=== PATIENT | male | born 1940 | race Caucasian/White ===

== ENCOUNTER 2021-11-26 08:46 | Outpatient (CLI) | payer BC, MEDICARE, SELFPAY ==
[2021-11-26 13:35] LABS: Chloride* 108 mmol/L (96-114)
[2021-11-26 13:36] LABS: Potassium* 4.6 mmol/L (3.6-5.1); Sodium* 139 mmol/L (135-149)
[2021-11-26 13:38] LABS: Alanine Aminotransferase* 19 U/L (4-50); Alkaline Phosphatase* 94 U/L (40-150); Aspartate Amino Transferase* 32 U/L (12-35); Bilirubin Total* 0.3 mg/dL (0.1-1.5); Blood Urea Nitrogen* 33 mg/dL (7-30); Carbon Dioxide* 24 mmol/L (20-32); Cholesterol* 194 mg/dL (90-199); Creatinine* 1.7 mg/dL (0.5-1.5); Estimated Glomerular Filt Rate 40 ml/min; Glucose* 98 mg/dL (60-115); Total Protein* 7.4 g/dL (6.0-8.3)
[2021-11-26 13:39] LABS: Calcium* 8.9 mg/dL (8.4-10.6); HDL Cholesterol* 40 mg/dL (>=40); LDL Cholesterol Calculated 134 mg/dL (<100); Triglycerides* 99 mg/dL (40-149)
[2021-11-26 14:08] LABS: PSA Screen* 2.66 ng/mL (0.10-4.00)
== END 2021-11-26 08:47 | disposition home or self-care (01) ==
LOC: LONREF 08:47
PROVIDERS: PCP Internal Medicine; Visit Provider Internal Medicine
DX: E78.5 Hyperlipidemia, unspecified (principal); R97.20 Elevated prostate specific antigen [PSA]; I10 Essential (primary) hypertension; N18.9 Chronic kidney disease, unspecified; M10.9 Gout, unspecified; N40.0 Benign prostatic hyperplasia without lower urinary tract symptoms
CPT/HCPCS: 80053; 80061; 84153

== ENCOUNTER 2022-12-16 14:51 | Outpatient (CLI) | payer BC, MEDICARE, SELFPAY | END 2022-12-16 14:52 | disposition home or self-care (01) | LOC: NFLDREF 12-17 20:28 | PROVIDERS: PCP Internal Medicine; Referring Provider Internal Medicine; Visit Provider Family Medicine | DX: R97.20 Elevated prostate specific antigen [PSA] (principal) | CPT/HCPCS: 84153 ==

== ENCOUNTER 2024-09-11 09:13 | Emergency (ER) | payer BC, SELFPAY ==
--- OUTSIDE RECORDS SUMMARY | 2024-09-11 09:15 | XMS_ITS | Clinical Summary ---
Author Organization [facility] Address [address] [place] [address] Care Team Providers Care Clinical Laboratory Director Name Role Phone Elsewhere, Pcp Primary Care Provider Unavailabl e Source Comments Patient records contain information from all sites at [facility]. For routine questions regarding patient records, call [phone] during business hours, M-F 8:00 AM - 5:00 PM Central Time. Record requests for emergency care only can be directed to [phone] at any time.[facility] Allergies Active Allergy Reactions Criticality Noted Date Comments Cephalosporins Other (see comments) 10/08/2019 'stingers in back', burning Body pain Medications * This document contains information received from the source organization and may not represent a complete record from that organization. allopurinol (ZYLOPRIM) 300 mg tablet Take 0.5 tablets by mouth daily. 7 Active cyanocobalamin (VITAMIN B12) 1,000 mcg/mL injection Inject 1,000 mcg as directed every 30 (thirty) days. 7 Active diflorasone (PSORCON) 0.05 % ointment Apply topically as needed for rash. Active miscellaneous medical supply (Blood Pressure Cuff) [facility] [place] Patient with Hypertension. Needs BP monitor at home 1 each 1 Active amLODIPine (NORVASC) 5 mg tablet Take 1 tablet (5 mg total) by mouth daily. 90 tablet 3 1 Active EPINEPHrine 0.3 mg/0.3 mL injection syringe Inject 0.3 mg intramuscular ly. Active nitroglycerin (NITROSTAT) 0.[address] 0.4 mg under the tongue as needed. 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 Nocturia 12/17/2017 Abdominal Aortic Aneurysm Without Rupture Unspec ified 03/20/2017 Other Dysplasia Of Prostate 12/13/2014 Dysfunction Erectile 12/05/2014 Hyperlipidemia 05/06/2007 Hypertension Essential Primary 05/06/2007 Resolved Problems Problem Noted Date Diagnosed Date Resolved Date Hypertension 03/21/2017 07/06/2021 Hyperlipidemia 03/21/2017 07/06/2021 Encounters Date Type Department Care Team Description 09/09/2024 10:00 AM CDT Clinical Communication Virtual Review in [address] [phone] Pre-visit Intake 07/22/2024 Clinical Communication Division of Vascular and Endovascular Surgery in [address] [address] Marybeth Garcia M.D. Appt Request from Last 3 Months Family History Medical History Relation Name Comments Hyperlipidemia Brother Juarez Prostate cancer Brother Juarez Skin cancer Brother Juarez Hyperlipidemia Mother Archana Hypertension Mother Archana Relation Name Status Comments Brother Juarez Mother Archana Social History Tobacco Use Types Packs/Day Years Used Date Smoking Tobacco: Former Cigarettes 0.5 8 1 977 - 1982 Smokeless Tobacco: Never Tobacco Cessation:Counseling Given: Not Answered Alcohol Use Standard Drinks/Week Comments Yes 3 (1 standard drink = 0.6 oz pur e alcohol) Occasional drinker Humiliation, Afraid, Rape, and Kick questionnair e Answer Date Recorded Within the last year, have y ou been afraid of your partner or ex-partner? No 02/21/2022 Within the last year, have y ou been humiliated or emotionally abused in other ways by your partner or ex-partner? No Within the last year, have y ou been kicked, hit, slapped, or otherwise physically hurt by your partner or ex-partner? No 02/21/2022 Within the last year, have y ou been raped or forced to have any kind of sexual activity by your partner or ex-partner? No 02/21/2022 Social Connection and Isolat ion Panel [NHANES] Answer Date Recorded In a typical week, how many times do you talk on the phone with family, friends, or neighbors? Patient declined 02/21/2022 How often do you get togethe r with friends or relatives? Patient declined 02/21/2022 How often do you attend chur or islam services? More than 4 times per year 02/21/2022 Do you belong to any clubs o r organizations such as presybeterian groups, unions, fraternal or athletic groups, or school groups? Yes 02/21/2022 How often do you attend meet ings of the clubs or organizations you belong to? More than 4 times per year 02/21/2022 Are you , , di vorced, , never , or living with a partner? 02/21/2022 AUDIT-C Answer Date Recorded Q1: How often do you have a drink containing alc ohol? Patient declined 02/21/2022 Average Number of Drinks Not on file 022 Frequency of Binge Drinking Not on file 02/03 Overall Financial Resource Strain (CARDIA) Answe r Date Recorded How hard is it for you to pa y for the very basics like food, housing, medical care, and heating? Not very hard 02/21/2022 [facility] - Occupational Stress Questionnaire Answer Date Recorded Do you feel stress - tense, restless, nervous, or anxious, or unable to sleep at night because your mind is troubled all the time - these days? To some extent 02/21/2022 Exercise Vital Sign Answer Date Recorde d On average, how many days pe r week do you engage in moderate to strenuous exercise (like a brisk walk)? 2 days 02/21/2022 On average, how many minutes do you engage in exercise at this level? 50 min 02/21/2022 Hunger Vital Sign Answer Date Recorded Within the past 12 months, y ou worried that your food would run out before you got the money to buy more. Never true 02/22/20 Within the past 12 months, t he food you bought just didn't last and you didn't have money to get more. Never true 02/21/2022 PRAPARE - Transportation Answer Date Re corded In the past 12 months, has l ack of transportation kept you from medical appointments or from getting medications? No 02/21/2022 In the past 12 months, has l ack of transportation kept you from meetings, work, or from getting things needed for daily living? Patient declined 02/21/2022 Housing Stability Vital Sign Answer Stevie e Recorded In the last 12 months, was t here a time when you were not able to pay the mortgage or rent on time? No 02/21/2022 In the last 12 months, how many places have you lived? 2 02/21/2022 In the last 12 months, was t here a time when you did not have a steady place to sleep or slept in a jail (including now)? No 02/21/2022 Nutrition Answer Date Recorded On average, how many serving s of fruits and vegetables do you eat per day (serving size is equal to 1 cup or approximately the size of a tennis ball)? 2-3 02/21/2022 Dental Answer Date Recorded Dental: Regular Dentist Yes 02/22/20 Employment Answer Date Recorded Employment status Retired 02/21/2022 Education Answer Date Recorded What is the highest level of school you have completed or the highest degree you have received? Bachelor's degree (e.g., BA, AB, BS) 07/04/2021 Sex and Gender Information Value Date Recorded Sex Assigned at Male 07/24/2018 1:13 PM CDT Legal Sex Male 8:06 PM CLAIM ATTORNEY Gender Identity Male 07/24/2018 1:13 PM CDT Sexual Orientation Straight 07/24/2018 1: 13 PM CDT Last Filed Vital Signs Vital Sign Reading Time Taken Comments Blood Pressure 114/67 2021 11:15 AM CLAIM ATTORNEY Pulse 60 2021 11:15 AM CLAIM ATTORNEY Temperature 36.4 C (97.5 F) 2021 11:15 AM CLAIM ATTORNEY Respiratory Rate 16 2021 11:1 5 AM CLAIM ATTORNEY Oxygen Saturation 95% 2021 11: 15 AM CLAIM ATTORNEY Inhaled Oxygen Concentration - - Weight 84.8 kg (186 lb 15.2 oz) 07/06/2021 2:45 PM CLAIM ATTORNEY Height 175 cm (5' 8.9) 07/06/2021 6:07 AM CLAIM ATTORNEY Body Mass Index 27.69 07/06/2021 6:07 AM CLAIM ATTORNEY Plan of Treatment Upcoming Encounters Date Type Department Care Team (Latest Contact Info) Description 09/14/2024 9:00 AM CDT Appointment Department of Radiology, [facility], in [place], [place] [address] [place] [address] Marybeth Garcia M.D. [address] [place] [phone] Discharge Disposition: Home or Self Care 09/14/2024 10:40 AM CDT Office Visit Division of Vascular and Endovascular Surgery in [place], [place] [address] [place] [address] Marybeth Garcia M.D. [address] [place] [phone] Health Maintenance Due Date Last Done Comments Office Visit for Blood Pressure Check / Re-check 1940 RSV vaccine - (32-3 6 weeks) or 60+ years (1 - 1-dose 75+ series) 07/08/2015 COVID-19 Vaccine ( - 2023-2 5 season) 2024 Influenza Vaccine (#1) 2024 6, 05/07/2011, 03/30/2008 Depression Screening (Annual PHQ-2) 05/05/2024 Fall Risk Screen (Annual) 05/05/2024 DTaP,Tdap,and Td Vaccines (3 - Td or Tdap) 12/05/2031 12/04/2021, 11/08/2011 Pneumococcal vaccine (50+ years) Completed 07/23/2018, 01/08/2011 Zoster Vaccines Completed 11/02/2018, 07/23/2018 IPV Vaccines Aged Out No longer eligi ble based on patient's age to complete this topic Medical Devices Implanted Type Area Professor Of Geography Device Identifier Shelf Expiration Date Model / Serial / Lot Grft Exc Aaa [place] B[place] [id number] - [id number] - [id number] Implanted:Qty : 1 on 07/06/2021 by Marybeth Garcia M.D. at [facility] Vascular Graft N/A: Aorta [place] 03/28/2023 [id number] / [id number] / Grft Exc Aaa Ext [id number] - [id number] - [id number] Implanted:Qty : 1 on 07/06/2021 by Marybeth Garcia M.D. at [facility] Vascular Graft N/A: Aorta [place] 10/04/2023 [id number] / [id number] / Insurance MEDICARE [facility] Advance Directives For more information, please contact: [phone] * Full Code (Latest Code Status on File) Date Activated Date Inactivated Comments 07/06/2021 12:41 PM 2021 1:30 PM Question Answer Comments Full Code: Discussed * Full Code Date Activated Date Inactivated Comments 07/06/2021 5:52 AM 07/06/2021 12:41 PM Question Answer Comments Full Code: Discussed * Full Code Date Activated Date Inactivated Comments 10/08/2019 1:04 PM 10/08/2019 7:59 PM Question Answer Comments Full Code: Discussed Care Teams Clinical Laboratory Director Relationship Specialty Start Date End Date Elsewhere, Pcp PCP - General Family Medicine 03/28/21
--- OUTSIDE RECORDS SUMMARY | 2024-09-11 09:15 | XMS_ITS | Encounter Summary ---
Author Organization [facility] Address [address] [place] [address] Care Team Providers Care Public Speaking Coach Name Role Phone Elsewhere, Pcp Primary Care Provider Unavailabl e Reason for Visit * Reason Onset Date Comments Pre-visit Intake 09/09/2024 * Appointment Request (Routine) - Pending Review Specialty Diagnoses / Procedures Referred By Tyler t Referred To Contact Vascular Medicine Referral ID Status Reason Start Date Expiration Date V isits Requested Visits Authorized [id number] Pending Review 08/13/2024 11/13/2025 1 1 Encounter Details Date Type Department Care Team (Latest Contact Info) Description 09/09/2024 10:00 AM CDT Clinical Communication Virtual Review in [address] [address] Pre-visit Intake Social History Tobacco Use Types Packs/Day Years [...] How often do you attend chur or restorationist services? More than 4 times per year 02/21/2022 Do you belong to any clubs o r organizations such as restorationist groups, unions, fraternal or athletic groups, or [...] care, and heating? Not very hard 02/21/2022 [facility] - Occupational [...] money to buy more. Never true 02/22/20 22 Within the past 12 months, t he [...] place to sleep or slept in a retirement (including now)? No 02/21/2022 Nutrition Answer Date [...] PM CDT Legal Sex Male 8:06 PM LICENSED PRACTICAL NURSE Gender Identity Male 07/24/2018 1:13 PM CDT Sexual Orientation Straight 07/24/2018 1: 13 PM CDT documented as of this encounter Plan of Treatment Upcoming Encounters Date Type Department Care Team (Latest Contact Info) Description 09/14/2024 9:00 AM CDT Appointment Department of Radiology, [facility], in [place], [place] [address] [place] [address] Marybeth Garcia M.D. [address] [place] [address] Discharge Disposition: Home or Self Care 09/14/2024 10:40 AM CDT Office Visit Division of Vascular and Endovascular Surgery in [place], [place] [address] [place] [address] Marybeth Garcia M.D. [address] [place] [phone] documented as of this encounter Visit Diagnoses Not on filedocumented in this encounter Care Teams Public Speaking Coach Relationship Specialty Start Date End Date Elsewhere, Pcp PCP - General Family Medicine 03/28/21 documented as of this encounter
--- OUTSIDE RECORDS SUMMARY | 2024-09-11 09:15 | XMS_ITS | Data Portability ---
Author Organization [facility], [facility] Address [address] [place] [address] Care Team Providers Care Deck Molder Name Role Phone ANALIA SAMS Primary Care Provider Assessment No assessment recorded. Plan of Treatment Reminders Order Date Submit Date Provider Last Modified By Organization Details Last Modified Time Details Appointments None recorded. Lab prostate specific Ag, serum or plasma 2019 [facility], [address], [place], [address], 0 16:35:47 Referral None recorded. Procedures None recorded. Surgeries None recorded. Imaging None recorded. Medication Orders Trimix 30 papaverin e/1 phentolam ine/10 PGE-1 2019 020 [email or web address] Not available 0 16:30:49 Patient TargetsNo targets recorded. Patient Instructions Encounter Date Encounter Id Patient Instructions Last Modified By Organization Details Last Modified Time 02/29/2020 [id number] 79 y/o male presents for a penile injection trial Displayed good injection technique. Inject 0.3 cc at home with stronger concentration for first dosage. Titrate up or down as tolerated and needed for desired response. Educated on side effects. Hand out provided with more information on penile injection types, side effects and reminder of injection technique. [email or web address] Not available 02/29/2020 11:41:08 Reason for Referral None Reported. Results Created Date Observation Date Name Description Value Unit Range Abnormal Flag Note LastModifiedBy Organization Detail LastModifiedTime 02/29/20 20 02/29/2020 prost ate speci fic Ag, serum or plasm a PSA, total 2.12 NG/mL 0.00-4 .00 Not Available [facility] [address], [place], [address], 02/29/2020 16:35:47 Result Notes None recorded. 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 N42.31 : Prostatic intraepith elial neoplasia Not Available [facility] 0 23:43:18 Dysplasia of prostate 892919988 Active 2014 N42.3 : Dysplasia of prostate Not Available [facility] 0 23:43:18 Clinical finding Active 2018 N40.1 : Desire for urination Not Available [facility] 0 23:43:18 Nocturia 191377329 Active 2017 R35.1 : Nocturia Not Available [facility] 0 23:43:18 Slowing of urinary stream 57921062 Active 2017 R39.12 : Slowing of urinary stream Not Available [facility] 0 23:43:18 Finding of desire for urination 808171999 Active 2018 R39.15 : Finding of desire for urination Not Available [facility] 0 23:43:18 Impotence Active 2014 N52.9 : Impotence Not Available [facility] 0 23:43:18 Problem Notes None recorded. Procedures Surgical History Date Name Laterality Status Provider Name and Address Organization Details Recorded Time 020 Penile Self Injection Trial completed JOYCE MARAVILLA [address], [place], [address], [place] [facility] 02/29/2020 11:38:49 020 Blood Draw/[employer]/PSA RESULTS completed Nereyda Márquez [facility] 02/29/2020 11:13:00 020 Cystoscopy- male completed Cornell Jain MD [address], [place], [address], [place] [facility] 02/20/2020 18:48:29 020 Bladder Scan completed Olivia Maynard [facility] 02/18/2020 14:30:45 020 Us urine capacity measure completed Not Available [facility] 10/14/2019 15:42:05 019 Us urine capacity measure completed Not Available [facility] 10/14/2019 15:42:04 019 Cystourethroscopy completed Not Available [facility] 10/14/2019 15:42:05 019 Us urine capacity measure completed Not Available [facility] 10/14/2019 15:42:05 019 Cystourethroscopy completed Not Available [facility] 10/14/2019 15:42:05 019 Irrigation of bladder completed Not Available [facility] 10/14/2019 15:42:05 019 Prostatectomy (turp) completed Not Available [facility] 10/14/2019 15:42:04 019 Cystourethroscopy completed Not Available [facility] 10/14/2019 15:42:04 018 Us urine capacity measure completed Not Available [facility] 10/14/2019 15:42:05 017 Xcapsl ctrc rmvl cplx wo ecp completed Not Available [facility] 10/14/2019 15:42:05 016 Njx aa&/strd other pn/branch completed Not Available [facility] 10/14/2019 15:42:04 016 Biopsy of prostate completed Not Available [facility] 10/14/2019 15:42:05 015 Us urine capacity measure completed Not Available [facility] 10/14/2019 15:42:04 014 Colonoscopy thru stoma spx completed Not Available [facility] 10/14/2019 15:42:04 012 Us urine capacity measure completed Not Available [facility] 10/14/2019 15:42:04 011 Biopsy of prostate completed Not Available [facility] 10/14/2019 15:42:04 011 Njx aa&/strd other pn/branch completed Not Available [facility] 10/14/2019 15:42:05 011 Taty venous bld venipuncture completed Not Available [facility] 10/14/2019 15:42:05 010 Njx aa&/strd other pn/branch completed Not Available [facility] 10/14/2019 15:42:05 010 Biopsy of prostate completed Not Available [facility] 10/14/2019 15:42:05 010 Us urine capacity measure completed Not Available [facility] 10/14/2019 15:42:05 Removal of sperm duct(s) completed Not Available [facility] 10/14/2019 15:42:04 Remove ext hem groups 2+ completed Not Available [facility] 10/14/2019 15:42:04 Circum 28 days or older completed Not Available [facility] 10/14/2019 15:42:05 Imaging Results None recorded. Procedure Notes None recorded. Medical Equipment None Reported. Allergies Allergen ID Allergen Name Allergen Category Reaction Reaction Severity Criticality Documentation Date Start Date Code Code System Note Provider Name and Address Organization Details Recorded Time 703959 Velosef medicatio n Not available Not available Not available 02/29/2020 0 RxNorm Dalton Vick [facility], [place] - [facility] 0 10:26:20 Medications Name Sig Start Date Stop Date Status Note LastModified by Organization Details LastModified Time unlisted medication 5ml 2019 active Not Available Not Available Not Avai lable Trimix 30 papaverine/ 1 phentolamin e/10 PGE-1 5 2019 active Not Available Not Available Not Avai lable compounded medication Inject intracave rnosal as directed 2019 active Not Available Not Available Not Avai lable Trimix 30 papaverine/ 1 phentolamin e/10 PGE-1 inject intracave rnosal as directed PRN for sexual activity 2019 active Not Available Not Available Not Avai lable Trimix 30 papaverine/ 1 phentolamin e/10 PGE-1 r 2019 active Not Available Not Available Not Avai lable Trimix #5 inject intracave rnosal as directed PRN for sexual activity 2019 active Not Available Not Available Not Avai lable amoxicillin 500 mg capsule 02/17 completed Not Available Not Available Not Available sulfamethox azole 800 mg-trimetho prim 160 mg tablet 02/17 completed Not Available Not Available Not Available BD Safety-Stacy Detachable Needle 3 mL 25 gauge x 5/8 syringe 02/28 completed Not Available Not Available Not Available oxycodone-a cetaminophe n 5 mg-325 mg tablet 02/28 completed Not Available Not Available Not Available cyanocobala min (vit B-12) 1,000 mcg/mL injection solution active Not Available Not Available Not Available mupirocin calcium 2 % topical cream 02/28 completed Not Available Not Available Not Available diflorasone 0.05 % topical cream APPLY A THIN LAYER TO THE AFFECTED AREA(S) BY TOPICAL ROUTE 2 TIMES PER DAY active Not Available Not Available No t Available allopurinol 300 mg tablet active Not Available Not Available Not Available finasteride 5 mg tablet 02/28 completed Not Available Not Available Not Available diflorasone 0.05 % topical ointment 02/28 completed Not Available Not Available Not Available oxycodone 5 mg tablet 02/28 completed Not Available Not Available Not Available Vitals Date Recorded Body height Body mass index (BMI) Body weight Provider Name and Address Organization Details Last Updated DateTime 02/18/2020 175.26 cm 28.5 kg/m2 18129.33 g Olivia Maynard [facility] 02/18/2020 14:27:31 Date Recorded Body height Body mass index (BMI) Body weight Provider Name and Address Organization Details Last Updated DateTime 02/29/2020 175.26 cm 28.6 kg/m2 95186.92 g Dalton Vick [facility] 02/29/2020 10:26:03 Social History Question Answer Notes LastModified by Organizat ion Details LastModified Time Tobacco Smoking Status Former Smoker Not Available [facility] 10/14/2019 02:36:20 What Is Your Level Of Alcohol Consumption? Occasional [email or web address] Information not available 02/18/2020 What Is Your Level Of Caffeine Consumption? Occasional [email or web address] Information not available 02/18/2020 How Much Tobacco Do You Chew? None Information not available 02/29/2020 Do You Or Have You Ever Used E-cigarettes Or Vape? Never Used Electronic Cigarettes [email or web address] Information not available 02/18/2020 Race White Information n ot available 10/14/2019 Marital Status Informati on not available 10/14/2019 Do You Or Have You Ever Used Smokeless Tobacco? Never Used Smokeless Tobacco [email or web address] Information not available 02/18/2020 How Much Tobacco Do You Smoke? No Information not available 02/29/2020 Sex: Unknown Functional Status None recorded. Mental Status None recorded. Family History Nothing Reported Notes:Cancer-reoriductive sy stem :Runs in Family Medical History No medical history recorded. Immunizations Vaccine Type Date Status Note Provider Nam e and Address Organization Details Recorded Time Pneumococcal conjugate PCV 13 9 completed Dalton [email or web address] [facility] 02/29/2020 10:27:34 Past Encounters Encounter ID Performer Location Encounter Start Date Encounter Closed Date Diagnosis/Indication Diagnosis SNOMED-CT Code Diagnosis ICD10 Code Diagnosis Note [id number] MD Ian [facility] [address] [place] [id number] 02/18/2020 14:04:46 02/23/2020 15:32:51 Benign prostatic hyperplasia with outflow obstruction 985644291 N40.1 Status post TURP. Describes a slow stream. There is thin webbing that I do dilate using the cystoscope that I am not sure how obstructiv e that would be but the prostate itself is widely patent. Primary er ectile dysfunction 974943605 N52.9 We discussed alternativ es such as a penile injection trial with the physician' s reproductive healthcare assistant. He gets headaches with the medication and has failed to the ED secondary to discomfort [id number] JOYCE MARAVILLAro_[facility] [address] [place] [address],[facility] e [address] [place] [phone] 02/29/2020 10:17:21 02/29/2020 11:55:01 Primary erectile dysfunction 478122172 N52.9 Screening for malignant neoplasm of prostate 389276222 Z12.5 Health Concerns Section Related Observation LastModified by Organization Detai ls LastModified Time None Recorded Concern Status LastModified by Organization Details LastModified Time None Recorded Advance Directives Directive None Recorded Payers Insurance Date Sequence Insurance Name Policy Number Policy Mckenna Covered Member ID Mckenna Member ID Guarantor Name 02/15/2020 1 [place] [employer] Del[place] L Stapf [id number] Del[place] L Stapf 02/18/2020 1 [facility] [employer] 113 Delos L Stapf [id number] Delos L Stapf 03/02/2020 1 [place] [employer] Delos L Stapf [id number] Delos L Stapf 02/13/2021 1 [facility] [employer] 113 Delos L Stapf [id number] Delos L Stapf Notes Date Note Type Note Provider Name and Address Organization Details Recorded Time 0 text/html He has had transurethral resection of the prostate x2. Originally this worked very effectively but he describes his stream has slowed down. It is less powerful than what he had right after the surgery. He is denying fevers or chills without says he has some intermittent stream at times and is mostly slow at night. ED. tried pills not work headaxches. uses [facility]. looking for alternative. Cornell Jain MD [address] [place] [address],[address], [address], [facility] 02/20/2020 18:50:36 0 text/html Erectile DysfunctionReported bypatient.Notes:Patient has noticed a gradual decline in erectile function the past 8 years. He has tried Viagra and Cialis independently with only mild effectiveness. He reports side effect of headaches. Able to achieve an ehs of 1 currently. Here today for a penile injection trial. JOYCE MARAVILLA [address] [place] [address],[address], [place], [address], [facility] 02/29/2020 11:42:47
--- OUTSIDE RECORDS SUMMARY | 2024-09-11 09:15 | XMS_ITS | Data Portability ---
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 Plan of Treatment Reminders Order Date Submit Date Provider Last Modified By Organization Details Last Modified Time Details Appointments *Follow-u p 15 2024 09:00A Nelly Bray MD Not available Not available Not available Lab HbA1c (hemoglob in A1c), blood 2024 025 [employer] [facility], [address], [address], [place], [address], 07/06/2024 13:43:58 CMP, serum or plasma 2024 025 [employer] [facility], [address], [address], [place], [address], 07/06/2024 13:43:56 lipid panel, serum 2024 025 [employer] [facility], [address], [address], [place], [address], 07/06/2024 13:44:03 vitamin D, 25-hydrox y, total, serum 2024 025 [employer] [facility], [address], [address], [place], [address], 07/06/2024 13:43:59 testoster one, total, serum 2024 025 [email or web address] [facility], [address], [address], [place], [address], 07/06/2024 13:44:00 PSA, serum or plasma 2024 025 [email or web address] [facility], [address], [address], [place], [address], 07/06/2024 13:44:01 renal function panel, serum 2024 025 [email or web address] [facility], [address], [address], [place], [address], 07/06/2024 13:43:55 Referral None recorded. Procedures None recorded. Surgeries None recorded. Imaging None recorded. Medication Orders allopurin ol 300 mg tablet 2024 025 [facility], [address] [place], [address], 06/22/2024 12:13:30 cyanocoba braulio (vit B-12) 1,000 mcg/mL injection solution 2024 025 [facility], [address] [place], [address], 06/22/2024 12:32:01 amlodipin e 5 mg tablet 2024 025 [facility], [address] [place], [address], 06/22/2024 12:24:58 Patient TargetsNo targets recorded. Patient Instructions Encounter Date Encounter Id Patient Instructions Last Modified By Organization Details Last Modified Time 06/22/2024 [id number] gout: care instructions [email or web address] Not available 06/22/2024 12:13:24 high cholesterol : care instructions [email or web address] Not available 06/22/2024 12:13:24 high blood pressure: care instructions [email or web address] Not available 06/22/2024 12:24:53 learning about high blood pressure [email or web address] Not available 06/22/2024 12:24:53 07/20/2024 [id number] medicines to avoid with kidney disease: care instructions [email or web address] Not available 07/20/2024 11:36:36 high blood pressure: care instructions [email or web address] Not available 07/20/2024 11:36:36 learning about high blood pressure [email or web address] Not available 07/20/2024 11:36:35 high cholesterol : care instructions [email or web address] Not available 07/20/2024 11:36:35 Reason for Referral None Reported. Results Created Date Observation Date Name Description Value Unit Range Abnormal Flag Note LastModifiedBy Organization Detail LastModifiedTime 06/23/1907/06/2024 RENAL FUNCT ION PANEL glucose 91 mg/dL 65-99 normal Fasti ng refer ence inter hugh Not Available [employer] [facility] [address], [place], [address], 07/06/2024 13:43:55 06/23/19 25 07/06/2024 RENAL FUNCT ION PANEL urea nitrogen (BUN) 36 mg/dL 7-25 high Not Available [facility] [address], [place], [address], 07/06/2024 13:43:55 06/23/19 25 07/06/2024 RENAL FUNCT ION PANEL creatinine 2.48 mg/dL 0.70-1 .22 high Not Available [facility] [address], [place], [address], 07/06/2024 13:43:55 06/23/19 25 07/06/2024 RENAL FUNCT ION PANEL eGFR 25 mL/mi n/1.7 3m2 > or = 60 low Not Available [facility] [employer] [facility] [address], [place], [address], 07/06/2024 13:43:55 06/23/19 25 07/06/2024 RENAL FUNCT ION PANEL BUN/creatini ne ratio 15 (calc ) 6-22 normal Not Available [facility] [address], [place], [address], 07/06/2024 13:43:55 06/23/19 25 07/06/2024 RENAL FUNCT ION PANEL sodium 139 mmol/ L 135-14 6 normal Not Available [facility] [address], [place], [address], 07/06/2024 13:43:55 06/23/19 25 07/06/2024 RENAL FUNCT ION PANEL potassium 4.7 mmol/ L 3.5-5. 3 normal Not Available [facility] [address], [place], [address], 07/06/2024 13:43:55 06/23/19 25 07/06/2024 RENAL FUNCT ION PANEL chloride 102 mmol/ L 98-110 normal Not Available [facility] [address], [place], [address], 07/06/2024 13:43:55 06/23/19 25 07/06/2024 RENAL FUNCT ION PANEL carbon dioxide 29 mmol/ L 20-32 normal Not Available [facility] [address], [place], [address], 07/06/2024 13:43:55 06/23/19 25 07/06/2024 RENAL FUNCT ION PANEL calcium 9.5 mg/dL 8.6-10 .3 normal Not Available [facility] [address], [place], [address], 07/06/2024 13:43:55 06/23/19 25 07/06/2024 RENAL FUNCT ION PANEL phosphate ( phosphorus) 3.6 mg/dL 2.1-4. 3 normal Not Available [facility] [address], [place], [address], 07/06/2024 13:43:55 06/23/19 07/06/2024 RENAL FUNCT ION PANEL albumin 4.1 g/dL 3.6-5. 1 normal Not Available [facility] [address], [place], [address], 07/06/2024 13:43:55 06/23/19 25 07/06/2024 COMPR EHENS PAULA METAB OLIC PANEL glucose 91 mg/dL 65-99 normal Fasti ng refer ence inter hugh Not Available [facility] [address], [place], [address], 07/06/2024 13:43:56 06/23/19 25 07/06/2024 COMPR EHENS PAULA METAB OLIC PANEL urea nitrogen (BUN) 36 mg/dL 7-25 high Not Available [facility] [address], [place], [address], 07/06/2024 13:43:56 06/23/19 25 07/06/2024 COMPR EHENS PAULA METAB OLIC PANEL creatinine 2.48 mg/dL 0.70-1 .22 high Not Available [facility] [place] [address], [place], [address], 07/06/2024 13:43:56 06/23/19 25 07/06/2024 COMPR EHENS PAULA METAB OLIC PANEL eGFR 25 mL/mi n/1.7 3m2 > or = 60 low Not Available [facility] [address], [place], [address], 07/06/2024 13:43:56 06/23/19 25 07/06/2024 COMPR EHENS PAULA METAB OLIC PANEL BUN/creatini ne ratio 15 (calc ) 6-22 normal Not Available [facility] [place] [address], [place], [address], 07/06/2024 13:43:56 06/23/19 25 07/06/2024 COMPR EHENS PAULA METAB OLIC PANEL sodium 139 mmol/ L 135-14 6 normal Not Available [facility] [address], [place], [address], 07/06/2024 13:43:56 06/23/19 25 07/06/2024 COMPR EHENS PAULA METAB OLIC PANEL potassium 4.7 mmol/ L 3.5-5. 3 normal Not Available [facility] [address], [place], [address], 07/06/2024 13:43:56 06/23/19 25 07/06/2024 COMPR EHENS PAULA METAB OLIC PANEL chloride 102 mmol/ L 98-110 normal Not Available [facility] [address], [place], [address], 07/06/2024 13:43:56 06/23/19 25 07/06/2024 COMPR EHENS PAULA METAB OLIC PANEL carbon dioxide 29 mmol/ L 20-32 normal Not Available [facility] [address], [place], [address], 07/06/2024 13:43:56 06/23/19 25 07/06/2024 COMPR EHENS PAULA METAB OLIC PANEL calcium 9.5 mg/dL 8.6-10 .3 normal Not Available [facility] [address], [place], [address], 07/06/2024 13:43:56 06/23/19 25 07/06/2024 COMPR EHENS PAULA METAB OLIC PANEL protein, total 6.8 g/dL 6.1-8. 1 normal Not Available [facility] [address], [place], [address], 07/06/2024 13:43:56 06/23/19 25 07/06/2024 COMPR EHENS PAULA METAB OLIC PANEL albumin 4.1 g/dL 3.6-5. 1 normal Not Available [facility] [place] [facility] [address], [place], [address], 07/06/2024 13:43:56 06/23/19 25 07/06/2024 COMPR EHENS PAULA METAB OLIC PANEL globulin 2.7 g/dL_ (calc ) 1.9-3. 7 normal Not Available [facility] [address], [place], [address], 07/06/2024 13:43:56 06/23/19 25 07/06/2024 COMPR EHENS PAULA METAB OLIC PANEL albumin/glob ulin ratio 1.5 (calc ) 1.0-2. 5 normal Not Available [place] [address], [place], [address], 07/06/2024 13:43:56 06/23/19 25 07/06/2024 COMPR EHENS PAULA METAB OLIC PANEL bilirubin, total 0.6 mg/dL 0.2-1. 2 normal Not Available [facility] [address], [place], [address], 07/06/2024 13:43:56 06/23/19 25 07/06/2024 COMPR EHENS PAULA METAB OLIC PANEL alkaline phosphatase 51 U/L 35-144 normal Not Available [facility] [address], [place], [address], 07/06/2024 13:43:56 06/23/19 25 07/06/2024 COMPR EHENS PAULA METAB OLIC PANEL AST 17 U/L 10-35 normal Not Available [facility], [place], [address], 07/06/2024 13:43:56 06/23/19 25 07/06/2024 COMPR EHENS PAULA METAB OLIC PANEL ALT 11 U/L 9-46 normal Not Available [facility] [place] [address], [place], [address], 07/06/2024 13:43:56 06/23/19 25 07/06/2024 HEMOG LOBIN A1C hemoglobin A1C 5.6 %_of_ total _HGB <5.7 normal For the purpo se of ofelia jenkins for the prese nce of diabe mehul: <5.7% Consi stent with the absen ce of diabe mehul 5.7-6 .4% Consi stent with incre ased risk for diabe mehul (pred iabet es) > or =6.5% Consi stent with diabe mehul This assay resul t is consi stent with a decre ased risk of diabe mehul. Curre ntly, no conse nsus exist s elizabeth petit use of hemog lobin A1c for diagn osis of diabe mehul in child elaine. Accor ding to Ameri can Diabe mehul Assoc iatio n (ADA) guide lines , hemog lobin A1c <7.0% repre sents optim al contr ol in non-p regna nt diabe tic patie nts. Diffe rent metri cs may apply to speci fic patie nt popul ation s. Stand ards of Medic al Care in Diabe mehul(A DA). Not Available [facility] [place] [facility] [address], [place], [address], 07/06/2024 13:43:58 06/23/19 25 07/06/2024 VITAM IN D,25- OH,TO LINK,I A vitamin D,25-oh,tota l,ia 110 NG/mL 30-100 high Vitam in D Statu s 25-OH Vitam in D: Defic iency : <20 ng/mL Insuf ficie ncy: 20 - 29 ng/mL Optim al: > or = 30 ng/mL For 25-OH Vitam in D testi ng on patie nts on D2-wolf pplem entat ion and patie nts for whom quant itati on of D2 and D3 fract ions is requi red, the [facility] e[facility](TM ) 25-OH VIT D, (D2,D 3), LC/MS /MS is recom selma d: order code [id number] (addis ents >2yrs ). See Note 1 Not Available [facility] [place] [facility] [address], [place], [address], 07/06/2024 13:43:59 06/23/19 25 07/06/2024 TESTO STERO NE, TOTAL MALES (ADUL T), IA testosterone , total, males (adult), ia 791 NG/dL 250-82 7 normal Not Available [facility] [place] [facility] [address], [place], [address], 07/06/2024 13:44:00 06/23/1907/06/2024 PSA, TOTAL PSA, total 2.59 NG/mL < or = 4.00 normal The total PSA value from this assay syste m is stand ardiz ed again st the WHO stand anastasiya. The test resul t will be appro ximat chrissy 20% lower when rolando red to the equim olar- stand ardiz ed total PSA (Cornell man Coult er). Rolando rison of seria l PSA resul ts shoul d be inter prete d with this fact in mind. This test was perfo rmed using the Sieme ns chemi lumin escen t metho d. Value s obtai johnnie from diffe rent assay metho ds canno t be used inter cespedes eably . PSA level s, regar dless of value , shoul d not be inter prete d as absol monisha evide nce of the prese nce or absen ce of disea se. Not Available [facility] [place] [facility] [address], [place], [address], 07/06/2024 13:44:01 06/23/19 25 07/06/2024 ADVAN SHAWNA LIPID PNL W/INF LAMMA TION, CARDI O IQ(R) cholesterol, total 231 mg/dL <200 high Not Available [facility] [place] [facility] [address], [place], [address], 07/06/2024 13:44:03 06/23/19 25 07/06/2024 ADVAN SHAWNA LIPID PNL W/INF LAMMA TION, CARDI O IQ(R) HDL cholesterol 46 mg/dL >39 Not Available [facility] [place] [facility] [address], [place], [address], 07/06/2024 13:44:03 06/23/19 25 07/06/2024 ADVAN SHAWNA LIPID PNL W/INF LAMMA TION, CARDI O IQ(R) triglyceride s 122 mg/dL <150 Not Available [facility] [place] [facility] [address], [place], [address], 07/06/2024 13:44:03 06/23/19 25 07/06/2024 ADVAN SHAWNA LIPID PNL W/INF LAMMA TION, CARDI O IQ(R) LDL-choleste rol 161 mg/dL _(orestes c) <100 high José Luis able range <100 mg/dL for prima ry preve ntion ; <70 mg/dL for patie nts with CHD or diabe tic patie nts with >= 2 CHD risk facto rs. LDL-C is now calcu lated using the [facility] calcu latio n, which is a valid ated novel metho d provi ding milagros r accur acy than the Fried kellee equat ion in the estim ation of LDL-C . Daisy n SS et al. NIDA. 2013; 310(1 9): 2060- 2067 (http ://ed Click[employer] Servicesati on.Intelligize. com/f aq/FA Q164) LDL-C is now calcu lated using the [facility] calcu latio n, which is a valid ated novel metho d provi ding milagros r accur acy than the Fried kellee equat ion in the estim ation of LDL-C . Daisy n SS et al. NIDA. 2013; 310(1 9): 2060- 2067 (http ://ed ati on.Intelligize. com/f aq/FA Q164) Not Available [facility] [place] [facility] [address], [place], [address], 07/06/2024 13:44:03 06/23/19 25 07/06/2024 ADVAN SHAWNA LIPID PNL W/INF LAMMA TION, CARDI O IQ(R) chol/HDLC ratio 5.0 calc <5.0 high Not Available [facility] [place] [facility] [address], [place], [address], 07/06/2024 13:44:03 06/23/19 25 07/06/2024 ADVAN SHAWNA LIPID PNL W/INF LAMMA TION, CARDI O IQ(R) non HDL cholesterol 185 mg/dL _(orestes c) <130 high For patie nts with diabe mehul plus 1 major ASCVD risk facto r, treat ing to a non-H DL-C goal of <100 mg/dL (LDL- C of <70 mg/dL ) is consi dered a thera peuti c optio n. For patie nts with diabe mehul plus 1 major ASCVD risk facto r, treat ing to a non-H DL-C goal of <100 mg/dL (LDL- C of <70 mg/dL ) is consi dered a thera peuti c optio n. Not Available [facility] [place] [facility] [address], [place], [address], 07/06/2024 13:44:03 06/23/19 25 07/06/2024 ADVAN SHAWNA LIPID PNL W/INF LAMMA TION, CARDI O IQ(R) LDL particle number 1888 nmol/ L <1138 high Relat paula Risk: Optim al <1138 ; Moder ate 1138- 1409; High >1409 . Male and Femal e Refer ence Range : 1016 to 2185 nmol/ L. Not Available [facility] [place] [facility] [address], [place], [address], 07/06/2024 13:44:03 06/23/19 25 07/06/2024 ADVAN SHAWNA LIPID PNL W/INF LAMMA TION, CARDI O IQ(R) LDL small 319 nmol/ L <142 high Relat paula Risk: Optim al <142; Moder ate 142-2 19; High >219. Male Refer ence Range : 123 to 441 nmol/ L; Femal e Refer ence Range : 115 to 386 nmol/ L. Not Available [facility] [place] [facility] [address], [place], [address], 07/06/2024 13:44:03 06/23/19 25 07/06/2024 ADVAN SHAWNA LIPID PNL W/INF LAMMA TION, CARDI O IQ(R) LDL medium 282 nmol/ L <215 high Relat paula Risk: Optim al <215; Moder ate 215-3 01; High >301. Male Refer ence Range : 167 to 485 nmol/ L; Femal e Refer ence Range : 121 to 397 nmol/ L. Not Available [facility] [place] [facility] [address], [place], [address], 07/06/2024 13:44:03 06/23/19 25 07/06/2024 ADVAN SHAWNA LIPID PNL W/INF LAMMA TION, CARDI O IQ(R) HDL large 5392 nmol/ L >6729 low Relat paula Risk: Optim al >6729 ; Moder ate 6729- 5353; High <5353 . Male Refer ence Range : 4334 to 85687 nmol/ L; Femal e Refer ence Range : 5038 to [address]9911 nmol/ L. Not Available [facility] [place] [facility] [address], [place], [address], 07/06/2024 13:44:03 06/23/19 25 07/06/2024 ADVAN SHAWNA LIPID PNL W/INF LAMMA TION, CARDI O IQ(R) LDL pattern B patte rn A abnormal Relat paula Risk: Optim al Patte rn A; High Patte rn B. Refer ence Range : Patte rn A. Not Available [facility] [place] [facility] [address], [place], [address], 07/06/2024 13:44:03 06/23/19 25 07/06/2024 ADVAN SHAWNA LIPID PNL W/INF LAMMA TION, CARDI O IQ(R) LDL peak size 211.9 angst rom >222.9 low This test was devmariah arroyo and its bandar tical perfo rmanc e silvia cteri stics have been deter mined by [facility] Cardi ometa bolreina Lutz r of [place] sherley at [facility]. It has not been clear ed or appro long by the U.S. Food and Drug Admin istra tion. This assay has been valid ated pursu ant to the CLIA regul ation s and is used for clini orestes purpo ses. Relat paula Risk: Optim al >222. 9; Moder ate 222.9 -217. 4; High <217. 4. Male and Femal e Refer ence Range : 216 to 234.3 Angst rom. Adult cardi ovasc ular event risk categ ory cut point s (opti mal, moder ate, high) are based on an adult [place]. refer ence popul ation plus two large cohor t study popul ation s. Assoc iatio n betwe en lipop rotei n subfr actio ns and cardi ovasc ular event s is based on Major kee et al. ATVB. 2009; 29:19 75. For addit ional infor sanchez rodriguez e refer to http: //[facility] chris jewell.Mckay stDia gnost ics.c om/fa q/FAQ 134 (This link is being provi ded for infor sean nal/e ducat ional purpo ses only. ) Not Available [facility] [place] [facility] [address], [place], [address], 07/06/2024 13:44:03 06/23/19 25 07/06/2024 ADVAN SHAWNA LIPID PNL W/INF LAMMA TION, CARDI O IQ(R) apolipoprote in B 142 mg/dL <90 high Risk: Optim al <90 mg/dL ; Moder ate 90-11 9 mg/dL ; High >= 120 mg/dL ; Cardi ovasc ular event risk categ ory cut point s (opti mal, moder ate, high) are based on Natio nal Lipid Assoc iatio n recom menda tions - Fracisco HENRY et al. J of Clin Lipid . 2015; 9: 129-1 69 and Stephanie GOODWIN et al. Endoc r Pract . 2017; 23(Wolf ppl 2):1- 87. Not Available [facility] [place] [facility] [address], [place], [address], 07/06/2024 13:44:03 06/23/19 25 07/06/2024 ADVAN SHAWNA LIPID PNL W/INF LAMMA TION, CARDI O IQ(R) lipoprotein (A) 581 nmol/ L <75 high Verif ied by repea t bandar sis. Risk: Optim al <75 nmol/ L; Moder ate 75-12 5 nmol/ L; High >125 nmol/ L. Cardi ovasc ular event risk categ ory cut point s (opti mal, moder ate, high) are based on Isaura Holley. [facility] 2017; 69:69 2-711 . Not Available [facility] [place] [facility] [address], [place], [address], 07/06/2024 13:44:03 06/23/19 25 07/06/2024 ADVAN SHAWNA LIPID PNL W/INF LAMMA TION, CARDI O IQ(R) hs CRP 1.3 mg/L <1.0 high Refer ence Range : Optim al <1.0 mg/L, accor ding to Stephanie GOODWIN et al. Endoc r Pract .2017 ;23(S uppl 2):1- 87. The AHA/C DC Guide lines recom mend hs-CR P range s for ident ifyin g Relat paula Cardi ovasc ular Risk in patie nts ages >17 years : <1.0 mg/L Lower Relat paula Cardi ovasc ular Risk; 1.0-3 .0 mg/L [place] ge Relat paula Cardi ovasc ular Risk; 3.1-1 0.0 mg/L Highe r Relat paula Cardi ovasc ular Risk. If resul t is betwe en 3.1 and 10.0 mg/L, consi angelo retes ting in 1-2 weeks to exclu de a benig n trans ient eleva tion secon juan to infec tion or infla mmati on from the basel ine CRP value . Persi stent eleva tions of >10.0 mg/L upon retes ting may be assoc iated with infec tion and infla mmati on. The AHA/C DC recom menda tions are based on Pears on TA, Mensa h GA, Kristin mckeon RW, et al. Marke rs of infla mmati on and cardi ovasc ular disea se: appli catio n to clini orestes and publi c healt h pract ice: A state ment for healt hcare profe ssion als from the [facility] for Disea se Contr ol and Preve ntion and the Ameri can Heart Assoc iatio n. Circu latio n 2002; 107(3 ): 499-5 11. For ages >17 Years : hs-CR P mg/L Risk Accor ding to AHA/C DC Guide lines <1.0 Lower relat paula cardi ovasc ular risk. 1.0-3 .0 [place] ge relat paula cardi ovasc ular risk. 3.1-1 0.0 Highe r relat paula cardi ovasc ular risk. Consi angelo retes ting in 1 to 2 weeks to exclu de a benig n trans ient eleva tion in the basel ine CRP value secon juan to infec tion or infla mmati on. >10.0 Persi stent eleva tion, upon retes ting, may be assoc iated with infec tion and infla mmati on. Pears on TA, Mensa h GA, Kristin mckeon RW, et al. Marke rs of infla mmati on and cardi ovasc ular disea se: appli catio n to clini orestes and publi c healt h pract ice: A state ment for healt hcare profe ssion als from the Cente rs for Disea se Contr ol and Preve ntion and the Ameri can Heart Assoc iatio n. Circu latio n 2003; 107(3 ): 499-5 11. Not Available [facility] [place] [facility] [address], [place], [address], 07/06/2024 13:44:03 06/23/19 25 07/06/2024 ADVAN SHAWNA LIPID PNL W/INF LAMMA TION, CARDI O IQ(R) LP pla2 activity 135 nmol/ min/m L <124 high Relat paula Risk: Optim al <=123 nmol/ min/m L; High >123 nmol/ min/m L. This test was devel oped and its bandar tical perfo rmanc e silvia cteri stics have been deter mined by [facility]. It has not been clear ed or appro long by the FDA. This assay has been valid ated pursu ant to the CLIA regul ation s and is used for clini orestes purpo ses. See Note 2 Note 1 For addit ional infor sanchez rodriguez e refer to http: //[facility] chris jewell.Que stDia gnost ics.c om/fa q/FAQ 199 (This link is being provi ded for infor sean alarcon/ educjenniffer henry l purpo ses only. ) Note 2 This test was devel oped and its bandar tical perfo rmanc e silvia cteri stics have been deter mined by [facility]. It has not been clear ed or appro long by the FDA. This assay has been valid ated pursu ant to the CLIA regul ation s and is used for clini orestes purpo ses. Not Available [facility] [place] [facility] [address], [place], [address], 07/06/2024 13:44:03 Result Notes None recorded. Problems Name Problem SNOMED Code Status Onset Date Resolution Date Notes Provider Name and Address Organization Details Recorded Time [facility] [id number] Active 2024 Vance Bray MD [address] [place] [address], [phone], [facility]14 [place] 11:51:07 History of repair of aneurysm of abdominal aorta [id number] [facility] 2024 Vance Bray MD [address] [place] [address], [phone], [address] 5 11:54:51 Chronic kidney disease stage 4 [id number] [facility] 2024 Vance Bray MD [address] [place] [address], [phone], [address] 5 11:27:11 Chronic kidney disease stage 3B [id number] [facility] 2024 Vance Bray MD [address] [place] [address], [phone], [address] 5 12:06:42 Prediabetes [id number] [facility] 2024 Vance Bray MD [address] [place] [address], [phone], [address] 5 12:07:31 Hyperlipidemia [id number] [facility] 2024 Vance Bray MD [address] [place] [address], [phone] 0, [address] 5 12:09:15 Essential hypertension [id number] [facility] 2024 Vance Bray MD [address] [place] [address], [phone], [address] 5 12:23:30 Vitamin B12 deficiency (non anemic) [id number] [facility] 2024 Vance Bray MD [address] [place] [address], [phone], [address] 5 12:30:16 Fatigue [id number] [facility] 2024 Vance Bray MD [address] [place] [address], [phone], [address] 5 12:31:11 Problem Notes None recorded. Procedures Surgical History Date Name Laterality Status Provider Name and Address Organization Details Recorded Time insertion of arterial stent completed Cristela Licea LPN [address] 06/22/2024 10:59:22 Imaging Results None recorded. Procedure Notes None recorded. Medical Equipment None Reported. Medications Name Sig Start Date Stop Date Status Note LastModified by Organization Details LastModified Time amlodipine 5 mg tablet TAKE 1 TABLET BY MOUTH ONCE DAILY AT BEDTIME active Not Available Not Available No t Available cyanocobalam in (vit B-12) 1,000 mcg/mL injection solution INJECT 1 ML SUBCUTANEOU SLY ONCE EVERY MONTH active Not Available Not Available Not Available allopurinol 300 mg tablet Take 1 tablet every day by oral route for 90 days, for gout. active Not Available Not Available No t Available Vitals Date Recorded Body weight Body mass index (BMI) Body height Body temperature Heart rate Respiratory rate Oxygen saturation Oxygen saturation in Arterial blood by Pulse oximetry Systolic blood pressure Diastolic blood pressure Provider Name and Address Organization Details Last Updated DateTime 5 94971.0 3 g 26.1 kg/m2 176.53 cm 97.8 [degF] 50 /min 18 /min 98 % 98 % 137 mm[Hg] 77 mm[Hg] Cristela Licea LPN [address] 5 11:05:11 Date Recorded Systolic blood pressure Diastolic blood pressure Systolic blood pressure Diastolic blood pressure Systolic blood pressure Diastolic blood pressure Provider Name and Address Organization Details Last Updated DateTime 5 160 mm[Hg] 82 mm[Hg] 160 mm[Hg] 90 mm[Hg] 170 mm[Hg] 90 mm[Hg] Vance Bray MD [address] [place] [address], [phone] [place] [address] 5 12:20:15 Social History Question Answer Notes LastModified by Organizat ion Details LastModified Time Tobacco Smoking Status Never Smoker Cristela Licea LPN [address] 06/22/2024 11:02:19 What Is Your Level Of Alcohol Consumption? Occasional Information not available 06/22/2024 How Many Times Per Week Do You Consume Alcohol? 1-2 Times Per Week Information not available 06/22/2024 Are You Blind Or Do You Have Difficulty Seeing? No Information not available 06/22/2024 What Is Your Level Of Caffeine Consumption? Moderate Information not available 06/22/2024 Are You Deaf Or Do You Have Serious Difficulty Hearing? No Information not available 06/22/2024 What Was The Date Of Your Most Recent Tobacco Screening? 07/20/2024 [email or web address] Information not available 07/20/2024 Sex: Male Functional Status Question Answer Note LastModified by Organization D etails LastModified Time Do you have difficulty walking or climbing stairs? No Information not available 06/22/2024 Do you have difficulty doing errands alone? No Information not available 06/22/2024 Are you able to care for yourself? Yes Information n ot available 06/22/2024 Do you have difficulty dressing or bathing? No Information not available 06/22/2024 Mental Status Question Answer Note LastModified by Organization D etails LastModified Time Do you have difficulty concentrating, remembering or making decisions? No Information no t available 06/22/2024 Family History Relationship Description Onset Age of this Age Resolved Age Notes LastModified by Organization Details LastModified Time Mother Renal failure syndrome 87 [email or web address] Not available 2024 11:01:16 Mother Hypertensive disorder [email or web address] Not available 2024 11:01:04 Father Accidental physical contact 26 [email or web address] Not available 2024 11:01:38 Medical History Condition Response Hyperlipidemia Y Heart Disease Y Colonoscopy Y Hypertension Y Past Encounters Encounter ID Performer Location Encounter Start Date Encounter Closed Date Diagnosis/Indication Diagnosis SNOMED-CT Code Diagnosis ICD10 Code Diagnosis Note [id number] Vance Bray MD [address] [id number] [facility] [place] [address] 06/22/2024 10:23:31 06/22/2024 12:36:48 Gout 93911351 M10.9 History of repair of aneurysm of abdominal aorta 574020382 Z98.62 done at [facility] done 2020; last CT done was [address] AAA Chronic ki dney disease stage 3B 935961844 N18.32 Prediabetes 019546349 R7 3.03 Hyperlipidemia 21159847 E78.5 Essential hypertension 38797980 I10 Screening for malignant neoplasm of prostate 505015681 Z12.5 Vitamin B1 2 deficiency (non anemic) 66248583 E53.8 Fatigue 07608086 R53.83 [id number] Vance Bray MD [address] [address] [id number] [facility] [address] [place] [address] 07/20/2024 10:35:03 07/20/2024 11:38:56 Chronic kidney disease stage [address] Avila Hyperlipidemia 55856963 E78.5 Essential hypertension 77301250 I10 Health Concerns Section Related Observation LastModified by Organization Detai ls LastModified Time None Recorded Concern Status LastModified by Organization Details LastModified Time None Recorded Advance Directives Directive None Recorded Payers Insurance Date Sequence Insurance Name Policy Number Policy Mckenna Covered Member ID Mckenna Member ID Guarantor Name 07/26/2024 1 [place] [place] [address] [id number] Delos Stapf 06/21/2024 1 [place] [facility] Delos Stapf [id number] Delos Stapf Notes Date Note Type Note Provider Name and Address Organization Details Recorded Time 06/22/2024 text/html This is a new 83-year-old male patient here to establish care with PMH significant for history of AAA repair done at [facility] in [place] 2020, CKD stage IIIb, hyperlipidemia and essential hypertension and gout.He has no complaints or concern at this time. He is requesting medication refills of all of his prescribed medication which includes allopurinol 300 mg tablet 1/2 tablet daily and amlodipine 5 mg tablet once daily.Multiple fasting and nonfasting labs ordered Vance Bray MD [address] [place] [address], [phone], [facility] [place] 06/27/2024 19:01:21 07/20/2024 text/html This is a new 83-year-old male patient here to establish care with PMH significant for history of AAA repair done at [facility] in [place] 2020, CKD stage IIIb, hyperlipidemia and essential hypertension and gout.He has no complaints or concern at this time. He is requesting medication refills of all of his prescribed medication which includes allopurinol 300 mg tablet 1/2 tablet daily and amlodipine 5 mg tablet once daily.Multiple fasting and nonfasting labs ordered July 20, 2024Patient is here to discuss lab results dated 06/23/2024 which revealed total cholesterol 231, LDL cholesterol 61, HDL 46, triglycerides 122 hs-CRP 1.3 and LDL particle #[id number]. Patient is currently not on any anti-cholesterol agent.PSA and testosterone level are within normal limits. Testosterone level 791 and PSA 2.59, A1c 5.6% which is normal vitamin D level is 110 and a CMP normal glucose creatinine 2.48 EGFR 25 normal liver enzymesPatient is aware that his CKD is slightly worsened from stage IIIb to stage IV. Patient sees his home care manager Dr. Streeter. Vance Bray MD [address] [place], [address], [facility] [place] 07/25/2024 21:23:49
--- OUTSIDE RECORDS SUMMARY | 2024-09-11 09:16 | XMS_ITS | Clinical Summary ---
Author Organization [facility]. Address [address] [place] [address]. [place] [address] Care Team Providers Care Senior Manager Mergers & Acquisitions Name Role Phone No/Unknown, Pcp Primary Care Provider Unavailabl e Allergies Active Allergy Reactions Criticality Noted Date Comments Cephalosporins Other (See Comments) 02/22/2021 Body pain Medications meclizine (ANTIVERT) 25 MG tablet Take 1 tablet by mouth every 8 hours as needed for Dizziness. 20 tablet 1 Active LORazepam (ATIVAN) 0.5 MG tablet Take 0.5 tablets by mouth every 8 hours as needed (dizziness). 20 tablet 1 Active allopurinol (ZYLOPRIM) 300 MG tablet Take 150 mg by mouth daily. 2 Active amLODIPine (NORVASC) 5 MG tablet Take 5 mg by mouth daily. 2 Active cyanocobalamin (VITAMIN B-12) 1000 MCG/ML injection Inject 1,000 mcg as directed. 7 Active diflorasone (PSORCON) 0.05 % Ointment Apply topically 2 times daily. 2 Active finasteride (PROSCAR) 5 MG tablet Take 5 mg by mouth daily. 2 Active EPINEPHrine (EPIPEN) 0.3 MG/0.3ML injection Inject 0.3 mg into the muscle. Active Active Problems No known active problems Social History Tobacco Use Types Packs/Day Years Used Date Smoking Tobacco: Never Smokeless Tobacco: Never Tobacco Cessation:Counseling Given: Not Answered Alcohol Use Standard Drinks/Week Comments Yes 0 (1 standard drink = 0.6 oz pur e alcohol) occ Sex and Gender Information Value Date Recorded Sex Assigned at Not on file Legal Sex Male 8:36 AM EDT Gender Identity Not on file Sexual Orientation Not on file Last Filed Vital Signs Vital Sign Reading Time Taken Comments Blood Pressure 160/85 02/21/2022 8:43 AM EDT Pulse 64 02/21/2022 8:43 AM EDT Temperature 36.2 C (97.1 F) 02/21/2022 8:43 AM EDT Respiratory Rate 16 02/21/2022 8:43 AM EDT Oxygen Saturation 98% 02/21/2022 8:43 AM EDT Inhaled Oxygen Concentration - - Weight 87.9 kg (193 lb 12.8 oz) 02/21/2022 8:43 AM EDT Height 176.5 cm (5' 9.5) 02/21/2022 8:43 AM EDT Body Mass Index 28.21 02/21/2022 8:43 AM EDT Plan of Treatment Health Maintenance Due Date Last Done Comments YEARLY PHYSICAL ADULT 18+ 1958 PNEUMOCOCCAL (65y+) (1 of 1 - PCV) 1990 ZOSTER (SHINGLES) (1 of 2) 1990 TETANUS/DIPHTHERIA 2005 RSV Immunization - age 60 ye ars and older or (1 - 1-dose 75+ series) 07/08/2015 COVID-19 Vaccine ( - 2023-2 5 season) 2024 INFLUENZA (Season Ended) 2024 RSV Immunization < 20 months Aged Out No longer eligible based on patient's age to complete this topic Insurance MEDICARE BCBS Advance Directives For more information, please contact: [phone] Healthcare Agents on File Name Relationship Healthcare Agent Relationshi p Communication Destini Negron Spouse Stated Revenue Stamp Clerk Care Teams Senior Manager Mergers & Acquisitions Relationship Specialty Start Date End Date No/Unknown, Pcp Please call [facility] [place] [address] PCP - General 02/22/21
--- OUTSIDE RECORDS SUMMARY | 2024-09-11 09:16 | XMS_ITS | Encounter Summary ---
Author Organization [facility] Address [address] [place] [address] Care Team Providers Care Senior Software Project Manager Name Role Phone Elsewhere, Pcp Primary Care Provider Unavailabl e Reason for Visit * Reason Onset Date Comments Appt Request 07/22/2024 Encounter Details Date Type Department Care Team (Latest Contact Info) Description 07/22/2024 Clinical Communication Division of Vascular and Endovascular Surgery in [place], [place] [address] [place] [address] Marybeth Garcia M.D. [address] [place] [address] Appt Request Social History Tobacco Use Types Packs/Day Years Used Date Smoking Tobacco: Former Cigarettes 0.5 8 1 977 - 1982 Smokeless Tobacco: Never Alcohol Use Standard Drinks/Week Comments Yes 3 [...] 02/21/2022 How often do you attend chur ch or pentecostal services? More than 4 times per year 02/21/2022 Do you belong to any clubs o r organizations such as protestant groups, unions, fraternal or athletic groups, or [...] care, and heating? Not very hard 02/21/2022 [facility] - Occupational Stress [...] place to sleep or slept in a halfway (including now)? 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 [address] [place] [address] Discharge Disposition: Home or Self Care 09/14/2024 10:40 AM CDT Office Visit Division of Vascular and Endovascular Surgery in [place], [place] [address] [place] [address] Marybeth Garcia M.D. [address] [place] [address] documented as of this encounter Visit Diagnoses Not on filedocumented in this encounter Care Teams Senior Software Project Manager Relationship Specialty Start Date End Date Elsewhere, Pcp PCP - General Family Medicine 03/28/21 documented as of this encounter
--- OUTSIDE RECORDS SUMMARY | 2024-09-11 09:16 | XMS_ITS | Clinical Summary ---
Author Organization [facility] Address [address] [place] [address] Care Team Providers Care Leather Flesher Name Role Phone Kristofer Crane MD Primary Care Provider Allergies Active Allergy Reactions Criticality Noted Date Comments Cephalosporins Other - Describe In Comment Field Medium 02/19/2019 Intermediate, sharp pin point pains in back Cephradine 05/01/2007 stinging Medications CYANOCOBALAMIN 1,000 MCG/ML INJECTION Inject 1,000 mcg intramuscular every 4 weeks. PROTECT FROM LIGHT Active EPINEPHrine (EPIPEN) 0.3 mg/0.3 mL injection Inject 0.3 mg intramuscular one time if needed for Allergic Reaction. 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% Unspecified essential hypertension 05/06/2007 Other and unspecified hyperlipidemia 05/06/2007 Personal history of tobacco use, presenting hazards to health 05/06/2007 Immunizations Immunization Administration Dates Next Due Hepatitis A (Adult) 04/22/2008 Yellow Fever 04/22/2008 Family History Medical History Relation Name Comments Good Health Brother 1 Good Health Brother 2 Good Health Brother 3 Good Health Daughter 1 Good Health Daughter 2 Good Health Sister Good Health Son 1 Good Health Son 2 Relation Name Status Comments Brother 1 Alive 69 Brother 2 Alive 51 Brother 3 Alive 49 Daughter 1 Alive 40 Daughter 2 Alive 28 Father (Age 84) kidney amy lure Mother (Age 30) traffic ac cident Sister Alive 41 Son 1 Alive 38 Son 2 Alive 36 Social History Tobacco Use Types Packs/Day Years Used Date Smoking Tobacco: Former Cigarettes 1 10 0 05/05/1972 - 05/05/1982 Smokeless Tobacco: Never Tobacco Cessation:Counseling Given: Yes Alcohol Use Standard Drinks/Week Comments Yes 0 (1 standard drink = 0.6 oz pur e alcohol) 1-2 times per week Sex and Gender Information Value Date Recorded Sex Assigned at Not on file 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 Height 175.3 cm (5' 9) 02/22/2019 11:3 1 AM CDT Body Mass Index 28.21 02/22/2019 11:31 AM CDT Plan of Treatment Health Maintenance Due Date Last Done Comments Tdap 07/08/1951 Depression screening for age 12+ 1952 BMI (ht and wt on same day) for age 18+ 1958 Tetanus booster 1960 Pneumococcal series for age 50+ (1 of 1 - PCV) 991 Zoster (shingles) series for age 50+ (1 of 2) 07/07/18 91 RSV vaccine for adults or pr egnancy (1 - 1-dose 75+ series) 07/08/2015 COVID-19 vaccine series ( season) Influenza Vaccine (Season Ended) 2025 Insurance [facility] FED EMP MEDICARE PART A HB ONLY Advance Directives * Full Code (Latest Code Status on File) Date Activated Date Inactivated Comments 02/22/2019 11:07 AM 02/23/2019 4:43 PM * Full Code Date Activated Date Inactivated Comments 05/06/2007 10:11 AM 05/07/2007 12:49 PM Care Teams Leather Flesher Relationship Specialty Start Date End Date Kristofer Crane MD [address] [place] [id number] PCP - General Internal Medicine 02/16/19
--- NOTE | 2024-09-11 09:21 | CRLHL7_ITS ---
For Patients: As a result of the Century Cures Act, medical imaging exams and procedure reports are released immediately into your electronic medical record. You may view this report before your referring provider. If you have questions, please contact your health care provider. INDICATION: Right-sided weakness. COMPARISON: 01/25/2016 TECHNIQUE: CT of the brain / head without intravenous contrast. Multiplanar axial, coronal, and sagittal reformats were reconstructed. FINDINGS: No intracranial hemorrhage. Parenchymal volume is well preserved for age. No acute or subacute cortically based infarct. No substantial white matter disease. No mass or mass effect. Normal ventricles. No skull fractures. No worrisome focal bone lesion. IMPRESSION: No acute intracranial findings. Discussed with Dr. Gomes at 9:33 a.m. on 09/11/2024 Please note that all CT scans at this facility use dose modulation, iterative reconstruction, and/or weight-based dosing when appropriate to reduce radiation dose to as low as reasonably achievable. Dictated by Zoie Shelby MD @ 09/11/2024 9:35:01 AM (Electronically Signed)
--- NOTE | 2024-09-11 09:21 | CRLHL7_ITS ---
For Patients: As a result of the Century Cures Act, medical imaging exams and procedure reports are released immediately into your electronic medical record. You may view this report before your referring provider. If you have questions, please contact your health care provider. DATE: 09/11/2024 CLINICAL HISTORY: Patient with focal neurological deficits. TECHNIQUE: Standard helical CT image acquisition of the neck up to the skull base after bolus intravenous contrast enhancement. 2D and 3D MIP images for post-processing were performed and interpreted on an independent workstation and 3D images were permanently archived. COMPARISON: CT same day. FINDINGS: The origins of the great vessels from the aortic arch are patent. The origin of the right vertebral artery is patent. The origin of the left vertebral artery is patent. The common carotid arteries are patent. There is no stenosis at the origin of the right internal carotid artery. There is a mild (less than 50%) stenosis at the origin of the left internal carotid artery by NASCET criteria, caused by non-calcified plaque with a greater than 2mm residual lumen. The rest of the cervical segments of the internal carotid arteries are patent up to the skull base. The vertebral arteries are codominant. The cervical segments of the vertebral arteries are patent up to the skull base. The visualized lung apices are unremarkable. The thyroid gland is unremarkable. The soft tissues of the neck are unremarkable. There are degenerative changes in the cervical spine. IMPRESSION: Mild (less than 50%) stenosis at the origin of the left internal carotid artery by NASCET criteria, caused by non-calcified plaque with a greater than 2mm residual lumen. Please note that all CT scans at this facility use dose modulation, iterative reconstruction, and/or weight-based dosing when appropriate to reduce radiation dose to as low as reasonably achievable. Dictated by Che Mcmahon MD @ 09/11/2024 1:15:16 PM (Electronically Signed)
--- NOTE | 2024-09-11 09:21 | CRLHL7_ITS ---
For Patients: As a result of the Century Cures Act, medical imaging exams and procedure reports are released immediately into your electronic medical record. You may view this report before your referring provider. If you have questions, please contact your health care provider. DATE: 09/11/2024 CLINICAL HISTORY: Patient with focal neurological deficits. TECHNIQUE: Standard helical CT image acquisition through the intracranial circulation following intravenous administration of contrast material with bolus tracking. 2D and 3D MIP images for post-processing were performed and interpreted on an independent workstation and 3D images were permanently archived. COMPARISON: CT same day. FINDINGS: There is no cerebral aneurysm or large vessel occlusion. There is intracranial atherosclerosis with mild to moderate narrowing in the supraclinoid ICAs bilaterally, moderate narrowing in the right M1 segment and moderate narrowing in the right A2 segment. The left middle cerebral artery and its branches are normal. The left anterior cerebral artery and its branches are normal. The right vertebral artery and PICA are normal. The left vertebral artery and PICA are normal. The left vertebral artery is dominant. The basilar artery is patent and appears normal. The right posterior cerebral artery is normal. The left posterior cerebral artery is normal. IMPRESSION: 1. No cerebral aneurysm or large vessel occlusion. 2. Intracranial atherosclerosis with mild to moderate narrowing in the supraclinoid ICAs bilaterally, moderate narrowing in the right M1 segment and moderate narrowing in the right A2 segment. Please note that all CT scans at this facility use dose modulation, iterative reconstruction, and/or weight-based dosing when appropriate to reduce radiation dose to as low as reasonably achievable. Dictated by Che Mcmahon MD @ 09/11/2024 1:19:50 PM (Electronically Signed)
[2024-09-11 09:34] LABS: Basophils Absolute Auto 0.04 K/uL (0.00-0.30); Basophils Percent Auto 0.9 % (0.0-3.0); Eosinophils Absolute Auto 0.13 K/uL (0.00-0.50); Eosinophils Percent Auto 2.9 % (0.0-7.0); Hemoglobin* 13.5 gm/dL (13.5-17.5); Immature Granulocytes Abs Auto 0.03 K/uL (0.00-0.30); Immature Granulocytes Pct Auto 0.7 %; Lymphocytes Absolute Auto 1.37 K/uL (0.90-2.90); Mean Corpuscular HGB Conc 32 gm/dL (32-36); Mean Corpuscular Hemoglobin 27 pg (26-34); Mean Corpuscular Volume 83 fL (80-100); Monocytes Percent Auto 7.9 % (0.0-11.0); Neutrophils Absolute Auto 2.63 K/uL (1.7-7.0); Neutrophils Percent Auto 57.6 % (42.0-72.0); Platelet Count* 168 K/uL (140-440); RDW Coefficient of Variation % 13.9 % (11.5-15.5); Red Blood Count 5.04 m/uL (4.30-5.90); White Blood Count* 4.56 K/uL (4.50-11.00)
[2024-09-11 09:35] LABS: Slide Review Reflex No
--- NOTE | 2024-09-11 09:35 | ED_ITS ---
HPI - General Adult General Chief complaint: Neuro Symptoms/Altered Deficit Stated complaint: Possible Stroke Time Seen by Provider: 09/11/24 09:28 History of Present Illness HPI narrative: Patient is a 84-year-old gentleman who happens to be my primary care patient as well who woke approximately 6 hours ago with severe cramp in his right leg. He did not think much of an went back to sleep but this morning is having difficulties with coordination of the right arm and leg. Upon awakening this morning approximately an hour ago or 5 hours after the onset of symptoms patient's noticed the patient was having garbled speech. Patient able to walk without difficulty. He has had no seizure activities. His sensorium appears to be clear. He has had no chest pain no shortness a breath orthopnea no PND no recent history of any medical issues and he has not had a CVA in the past. Patient takes no anti-platelet or anti coagulant. Related Data Home Medications ?Medication ?Instructions ?Recorded ?Confirmed amlodipine 10 mg tablet 10 mg PO QDAY 12/04/21 11/07/22 mecobalamin (vitamin B12) 10,000 1,000 mcg IM MONTHLY 12/04/21 11/07/22 mcg solution for injection simvastatin 10 mg tablet 10 mg PO QPM 12/04/21 11/07/22 Previous Rx's ?Medication ?Instructions ?Recorded finasteride 5 mg tablet 5 mg PO QDAY #90 tabs 12/04/21 rosuvastatin 10 mg tablet 10 mg PO QDAY #90 tabs 12/04/21 diflorasone 0.05 % topical ointment 1 applic topical BID #30 grams 01/21/22 amlodipine 5 mg tablet 5 mg PO QDAY #90 tabs 11/24/22 allopurinol 300 mg tablet 150 mg (1/2 x 300 mg) PO QDAY Gout 04/21/23 #45 tabs cyanocobalamin (vitamin B-12) 1,000 mcg IM Q4W #10 mL 05/27/23 1,000 mcg/mL injection solution clopidogrel 75 mg tablet (Plavix) 75 mg PO DAILY #21 tabs 09/11/24 Allergies Allergy/AdvReac Type Severity Reaction Status Date / Time Cephalosporins Allergy Intermediate sharp pin Verified 09/11/24 10:22 point pains in back Review of Systems Status of ROS: Reports: 10 or more systems reviewed and unremarkable except as noted in History and below [facility] Medical History Mass of anterior abdominal wall ?R22.2 - Localized swelling, mass and lump, trunk (ICD-10) Surgical History Status post recent transurethral resection of prostate ?Z98.890 - Other specified postprocedural states (ICD-10) Status post abdominal aortic aneurysm repair ?Z98.890 - Other specified postprocedural states (ICD-10) ?Z86.79 - Personal history of other diseases of the circulatory system (ICD- 10) Social History Smoking Status: Former smoker Exam Narrative: Exam Narrative: EXAM GENERAL: Patient appears comfortable and well. EYES: No scleral icterus. ENT: Tympanic membranes and oropharynx normal. THYROID: no thyroid nodules or thyromegaly. LYMPH: No supraclavicular or cervical lymphadenopathy. SKIN: Visible skin seen during exam normal or with benign process only. EXT: No dependent lower extremity pedal edema. HEART: Regular rate and rhythm with no murmurs, rubs, or gallops. LUNGS: Clear to auscultation bilaterally with no crackles or wheezes. ABD: Soft, non tender, non distended. PSYCH: Good eye contact, speech is not pressured. Neurologic cranial nerves 2-12 grossly intact. I do see some minor and un coordination of the right arm but no other palpable or visual abnormalities. Const: Vital Signs, click to edit/add: Vital Signs - 24 hr 09/11/24 09:54 Temperature 97.3 F L Pulse Rate [Left] 62 Respiratory Rate 18 Blood Pressure [Le ft Upper Arm] 180/82 H Pulse Oximetry 100 Oxygen Delivery Me thod Room Air Course Course ED Course: Patient arrived in a stroke code was called. CT CTA pending. I did visit with Neurology. Center laboratory studies are pending EKG pending. Vital Signs Vital signs: Initial Vital Signs Temperature 97.3 F L 09/11/24 09:54 Temperature Source Temporal Artery Scan 09/11/24 09:54 Pulse Rate 62 09/11/24 09:54 Pulse Rhythm Regular 09/11/24 09:54 Respiratory Rate 18 09/11/24 09:54 Blood Pressure 180/82 H 09/11/24 09:54 Blood Pressure Mean 114 H 09/11/24 09:54 Blood Pressure Position Supine 09/11/24 09:54 Pulse Oximetry 100 09/11/24 09:54 Oxygen Delivery Method Room Air 09/11/24 09:54 Vital Signs Temperature 97.3 F L 09/11/24 09:54 Pulse Rate 62 09/11/24 09:54 Respiratory Rate 18 09/11/24 09:54 Blood Pressure 180/82 H 09/11/24 09:54 Pulse Oximetry 100 09/11/24 09:54 Oxygen Delivery Method Room Air 09/11/24 09:54 Temperature 97.3 F L 09/11/24 09:54 Pulse Rate 62 09/11/24 09:54 Respiratory Rate 18 09/11/24 09:54 Blood Pressure 180/82 H 09/11/24 09:54 Pulse Oximetry 100 09/11/24 09:54 Oxygen Delivery Method Room Air 09/11/24 09:54 Medical Decision Making MDM Narrative Medical decision making narrative: Patient presents after having a leg cramp at night with some garbled speech and right-sided weakness. I did give him an NIH stroke score of 2. GCS is 15. Laboratory studies are reassuring CT of the head is unremarkable EKG shows sinus rhythm. He had some minor small vessel changes but nothing acute on his cerebral angiogram. 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 I did visit with Neurology who also saw the patient in the ED recommend aspirin 325 now and Plavix 300 now. Will follow with 21 days of Plavix and continued aspirin 81 mg daily. Patient is to have an outpatient echocardiogram and MRI without contrast. Patient is visiting from [place] and will be heading back in the next 1-2 days. He does not want to schedule the imaging at this time and understands the risk of doing so. He is able to contact me and we will set up follow-up for him. At the very latest we will follow-up when he returns in October. I did recommend the MRI and echocardiogram this week. Lab Data Labs: Lab Results 09/11/24 Range/Units 09:26 WBC 4.56 (4.50-11.00) K/uL RBC 5.04 (4.30-5.90) m/uL Hgb 13.5 (13.5-17.5) gm/dL Hct 42.0 (37.0-53.0) % MCV 83 (80-100) fL MCH 27 (26-34) pg MCHC 32 (32-36) gm/dL RDW Coeff of Tanna 13.9 (11.5-15.5) % Plt Count 168 (140-440) K/uL Neut % (Auto) 57.6 (42.0-72.0) % Lymph % (Auto) 30.0 (20-44) % Saunders % (Auto) 7.9 (0.0-11.0) % Eos % (Auto) 2.9 (0.0-7.0) % Baso % (Auto) 0.9 (0.0-3.0) % Neut # (Auto) 2.63 (1.7-7.0) K/uL Lymph # (Auto) 1.37 (0.90-2.90) K/uL Saunders # (Auto) 0.40 (0.00-0.90) K/UL Eos # (Auto) 0.13 (0.00-0.50) K/uL Baso # (Auto) 0.04 (0.00-0.30) K/uL Abs Immat Gran (auto) 0.03 (0.00-0.30) K/uL Imm/Tot Granulo (auto) 0.7 % INR 0.93 (0.91-1.10) Sodium 139 (135-149) mmol/L Potassium 4.2 (3.6-5.1) mmol/L Chloride 104 (96-114) mmol/L Carbon Dioxide 28 (20-32) mmol/L Anion Gap 7 (7-15) mEq/L BUN 34 H (7-30) mg/dL Creatinine 2.0 H (0.5-1.5) mg/dL Estimated GFR 32 ml/min Glucose 112 (60-115) mg/dL Calcium 9.6 (8.4-10.6) mg/dL Total Bilirubin 0.6 (0.1-1.5) mg/dL AST 33 (12-35) U/L ALT 18 (4-50) U/L Alkaline Phosphatase 60 (40-150) U/L Total Protein 7.4 (6.0-8.3) g/dL Albumin 4.2 (3.3-5.0) g/dL Discharge Plan Discharge Clinical Impression: Weakness Patient Disposition: Home, Self-Care Condition: Stable Instructions: Weakness (ED) Additional Instructions: Aspirin 81 mg daily Plavix 75 mg daily for 21 days Continue current medications. Follow-up with Dr. Crane to schedule MRI and echocardiogram. Return if symptoms return. Activity Level: No Restrictions Discharge Diet: Regular Prescriptions: New clopidogrel [Plavix] 75 mg tablet 75 mg PO DAILY Qty: 21 2RF No Action amlodipine 10 mg tablet 10 mg PO QDAY simvastatin 10 mg tablet 10 mg PO QPM mecobalamin (vitamin B12) 10,000 mcg recon soln 1,000 mcg IM MONTHLY rosuvastatin 10 mg tablet 10 mg PO QDAY Qty: 90 3RF finasteride 5 mg tablet 5 mg PO QDAY Qty: 90 3RF diflorasone 0.05 % ointment 1 applic topical BID Qty: 30 2RF amlodipine 5 mg tablet 5 mg PO QDAY Qty: 90 3RF allopurinol 300 mg tablet 150 mg PO QDAY Qty: 45 3RF cyanocobalamin (vitamin B-12) 1,000 mcg/mL solution 1,000 mcg IM Q4W Qty: 10 0RF Follow Up/Referrals: Provider,Not a Local [Primary Care Provider] - Stand Alone Forms: MyHealth Info Instructions
[2024-09-11 09:43] LABS: Albumin* 4.2 g/dL (3.3-5.0); Chloride* 104 mmol/L (96-114); Potassium* 4.2 mmol/L (3.6-5.1); Sodium* 139 mmol/L (135-149)
[2024-09-11 09:45] VITALS: BP 176/81; PULSE 62; RESP 16; O2SAT 100
[2024-09-11 09:46] LABS: Alanine Aminotransferase* 18 U/L (4-50); Alkaline Phosphatase* 60 U/L (40-150); Anion Gap 7 mEq/L (7-15); Aspartate Amino Transferase* 33 U/L (12-35); Bilirubin Total* 0.6 mg/dL (0.1-1.5); Blood Urea Nitrogen* 34 mg/dL (7-30); Calcium* 9.6 mg/dL (8.4-10.6); Carbon Dioxide* 28 mmol/L (20-32); Estimated Glomerular Filt Rate 32 ml/min; Glucose* 112 mg/dL (60-115); INR 0.93 (0.91-1.10); Prothrombin Time 13.2 Seconds; Total Protein* 7.4 g/dL (6.0-8.3)
--- OUTSIDE RECORDS SUMMARY | 2024-09-11 09:49 | XMS_ITS | Encounter Summary ---
Author Organization [facility] Address [address] [place] [address] Care Team Providers Care Career Portals Teacher Name Role Phone Elsewhere, Pcp Primary Care Provider Unavailabl e Reason for Visit * Reason Onset Date Comments Appt Request 07/22/2024 Encounter Details Date Type Department Care Team (Latest Contact Info) Description 07/22/2024 Clinical Communication Division of Vascular and Endovascular Surgery in [place], [place] [address] [place] [address] Marybeth Garcia M.D. [address] [place] [address] Appt Request Social History Tobacco Use Types [...] often do you attend chur ch or samaritan services? More than 4 times per year 02/21/2022 Do you belong to any clubs o r organizations such as sabianism groups, unions, fraternal or athletic groups, or [...] care, and heating? Not very hard 02/21/2022 [facility] of Occupat ional Health - Occupational Stress [...] place to sleep or slept in a long-term (including now)? 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 [address] [place] [address] Discharge Disposition: Home or Self Care 09/14/2024 10:40 AM CDT Office Visit Division of Vascular and Endovascular Surgery in [place], [place] [address] [place] [address] Marybeth Garcia M.D. [address] [place] [address] documented as of this encounter Visit Diagnoses Not on filedocumented in this encounter Care Teams Career Portals Teacher Relationship Specialty Start Date End Date Elsewhere, Pcp PCP - General Family Medicine 03/28/21 documented as of this encounter
--- OUTSIDE RECORDS SUMMARY | 2024-09-11 09:49 | XMS_ITS | Clinical Summary ---
Author Organization [facility] Address [address] [place] [address] Care Team Providers Care Steel Detailer Name Role Phone Elsewhere, Pcp Primary Care Provider Unavailabl e Source Comments Patient records contain information from all sites at [facility]. For routine questions regarding patient records, call [phone] during business hours, M-F 8:00 AM - 5:00 PM Central Time. Record requests for emergency care only can be directed to [phone] at any time.[facility] Allergies Active Allergy Reactions Criticality Noted Date [...] Active miscellaneous medical supply (Blood Pressure Cuff) [facility] Patient with Hypertension. 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 Appt Request from Last [...] How often do you attend chur or orthodox services? More than 4 times per year 02/21/2022 Do you belong to any clubs o r organizations such as denominational groups, unions, fraternal or athletic groups, or [...] care, and heating? Not very hard 02/21/2022 [facility] of Occupat ional Health - Occupational Stress [...] place to sleep or slept in a prison (including now)? 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 Gender Identity Male 07/24/2018 1:13 PM CDT Sexual Orientation Straight 07/24/2018 1: 13 PM CDT Last Filed Vital Signs Vital Sign Reading Time Taken Comments Blood Pressure 114/67 2021 11:15 AM SURGICAL ELASTIC KNITTER Pulse 60 2021 11:15 AM SURGICAL ELASTIC KNITTER Temperature 36.4 C (97.5 F) 2021 11:15 AM SURGICAL ELASTIC KNITTER Respiratory Rate 16 2021 11:1 5 AM SURGICAL ELASTIC KNITTER Oxygen Saturation 95% 2021 11: 15 AM SURGICAL ELASTIC KNITTER Inhaled Oxygen Concentration - - Weight 84.8 kg (186 lb 15.2 oz) 07/06/2021 2:45 PM SURGICAL ELASTIC KNITTER Height 175 cm (5' 8.9) 07/06/2021 6:07 AM SURGICAL ELASTIC KNITTER Body Mass Index 27.69 07/06/2021 6:07 AM SURGICAL ELASTIC KNITTER Plan of Treatment Upcoming Encounters Date Type Department Care Team (Latest Contact Info) Description 09/14/2024 9:00 AM CDT Appointment Department of Radiology, [facility], in [place], [place] [address] [place] [address] Marybeth Garcia M.D. [address] [place] [phone] Discharge Disposition: Home or Self Care 09/14/2024 10:40 AM CDT Office Visit Division of Vascular and Endovascular Surgery in [place], [place] [address] [place] [address] Marybeth Garcia M.D. [address] [place] [phone] Health Maintenance Due Date Last Done Comments [...] this topic Medical Devices Implanted Type Area Cash Clerk Device Identifier Shelf Expiration Date Model / Serial / Lot Grft Exc Aaa [place] [id number] [id number] - [id number] - [id number] Implanted:Qty : 1 on 07/06/2021 by Marybeth Garcia M.D. at [facility] Vascular Graft N/A: Aorta Moss 03/28/2023 [id number] / [id number] / Grft Exc Aaa Ext [id number] - [id number] - [id number] Implanted:Qty : 1 on 07/06/2021 by Marybeth Garcia M.D. at [facility] Vascular Graft N/A: Aorta Moss 10/04/2023 [id number] / [id number] / Insurance MEDICARE [facility] Advance Directives For more information, please contact: [phone] * Full Code (Latest Code Status on [...] Answer Comments Full Code: Discussed Care Teams Steel Detailer Relationship Specialty Start Date End Date Elsewhere, Pcp PCP - General Family Medicine 03/28/21
--- OUTSIDE RECORDS SUMMARY | 2024-09-11 09:49 | XMS_ITS | Encounter Summary ---
Author Organization [facility] Address [address] [place] [address] Care Team Providers Care Wood Filler Name Role Phone Elsewhere, Pcp Primary Care Provider Unavailabl e Reason for Visit * Reason Onset Date Comments Pre-visit Intake 09/09/2024 * Appointment Request (Routine) - Pending Review Specialty Diagnoses / Procedures Referred By Tyler t Referred To Contact Vascular Medicine Referral ID Status Reason Start Date Expiration Date V isits Requested Visits Authorized [id number] Pending Review 08/13/2024 11/13/2025 1 1 Encounter Details Date Type Department Care Team (Latest Contact Info) Description 09/09/2024 10:00 AM CDT Clinical Communication Virtual Review in [address] [address] Pre-visit Intake Social History Tobacco Use Types [...] How often do you attend chur or rastafarian services? More than 4 times per year 02/21/2022 Do you belong to any clubs o r organizations such as mormonism groups, unions, fraternal or athletic groups, or [...] care, and heating? 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 [address] [place] [address] Discharge Disposition: Home or Self Care 09/14/2024 10:40 AM CDT Office Visit Division of Vascular and Endovascular Surgery in [place], [place] [address] [place] [address] Marybeth Garcia M.D. [address] [place] [address] documented as of this encounter Visit Diagnoses Not on filedocumented in this encounter Care Teams Wood Filler Relationship Specialty Start Date End Date Elsewhere, Pcp PCP - General Family Medicine 03/28/21 documented as of this encounter
--- OUTSIDE RECORDS SUMMARY | 2024-09-11 09:49 | XMS_ITS | Clinical Summary ---
Author Organization [facility]. Address [address] [place] [address]. [place] [address] Care Team Providers Care Regional Environmental Manager Name Role Phone No/Unknown, Pcp Primary Care [...] Advance Directives For more information, please contact: [phone] Healthcare Agents on File Name Relationship Healthcare Agent Relationshi p Communication Destini Negron Spouse Stated Orthopaedic Surgeon Care Teams Regional Environmental Manager Relationship Specialty Start Date End Date No/Unknown, Pcp Please call [place] [address] PCP - General 02/22/21
--- OUTSIDE RECORDS SUMMARY | 2024-09-11 09:49 | XMS_ITS | Clinical Summary ---
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
[2024-09-11 09:54] VITALS: BP 180/82; PULSE 62; RESP 18; TEMP 36.3; O2SAT 100; BMI 26.6
[2024-09-11 10:00] VITALS: BP 175/81; PULSE 62; RESP 16; O2SAT 100
[2024-09-11 10:30] VITALS: BP 161/73; PULSE 61; RESP 16; O2SAT 96
[2024-09-11 10:45] VITALS: BP 168/83; PULSE 58; RESP 16; O2SAT 96
[2024-09-11] MEDS: CLOPIDOGREL 300 MG TABLET PO (10:51)
[2024-09-11] MEDS: ASPIRIN EC 325 MG TABLET PO (10:58)
== END 2024-09-11 11:08 | disposition home or self-care (01) ==
PROVIDERS: Emergency Provider Internal Medicine
DX: R53.1 Weakness (principal); M79.604 Pain in right leg; R47.89 Other speech disturbances
CPT/HCPCS: 36415; 70450; 70496; 70498; 80053; 85025; 85610; 93005; 99283; 99284; 99285; G0427; A9270; Q9967